=== PATIENT | male | born 1960 | race Caucasian/White ===

== ENCOUNTER 2021-05-03 12:58 | Emergency (ER) | payer MEDICARE ==
[2021-05-03 13:42] LABS: HEMOGLOBIN 15.6 gm/dl (14.0-17.5); RED BLOOD COUNT 5.44 M/UL (4.20-5.50)
[2021-05-03 14:08] LABS: BUN/CREATININE RATIO 19 (0-10)
[2021-05-08 10:14] LABS: A. PHAGOCYTOPHILUM PCR Negative (Negative); EHRLICHIA CHAFFEENSIS PCR Negative (Negative)
== END 2021-05-03 19:25 | disposition short-term general hospital (02) ==
LOC: ER1 12:58
PROVIDERS: Emergency Medicine
DX: R41.0 Disorientation, unspecified (principal); R41.3 Other amnesia; Z20.822 Contact with and (suspected) exposure to COVID-19; I10 Essential (primary) hypertension
CPT/HCPCS: 70450; 71045; 80053; 81001; 82550; 82553; 82962; 83605; 83690; 83735; 83874; 84439; 84443; 84484; 85025; 85610; 85730; 86757; 87040; 87798; 93005; 96374; 99285; G0480; J1953; U0002